=== PATIENT | male | born 1950 | race Caucasian/White ===

== ENCOUNTER 2018-08-22 13:15 | Emergency (ER) | payer OTHER, BC ==
[~2018-08-22] VITALS: Ht 182.9 cm; Wt 104.3 kg
[2018-08-22 13:21] VITALS: Ht 182.9 cm; Wt 104.3 kg
[2018-08-22 15:09] VITALS: BP 109/75
== END 2018-08-22 15:09 | disposition home or self-care (01) ==
LOC: ED 13:15
DX: S91.312A Laceration without foreign body, left foot, initial encounter (principal); M79.671 Pain in right foot; W26.8XXA Contact with other sharp object(s), not elsewhere classified, initial encounter; Y93.89 Activity, other specified; Y92.89 Other specified places as the place of occurrence of the external cause; Y99.8 Other external cause status
CPT/HCPCS: J2001